=== PATIENT | male | born 1970 | race Caucasian/White ===

== ENCOUNTER 2016-09-25 18:10 | Observation (INO) | payer SELFPAY ==
[~2016-09-25] VITALS: Ht 182.9 cm; Wt 96.9 kg
[~2016-09-25 18:10] MED LIST: CYCL-36 PO; DICL50TA3 PO
[2016-09-25 18:15] VITALS: BP 133/103; PULSE 97; RESP 16; TEMP 98.3; O2SAT 97
[2016-09-25 18:20] VITALS: RESP 16; O2SAT 100
--- NOTE | 2016-09-25 18:44 | PD ---
HPI Chief Complaint: Chest Pain Time Seen by Provider: 18:29 Travel History International Travel<30 days: No Contact w/Intl Traveler<30days: No Traveled to known affect area: No History of Present Illness HPI This 46-year-old male is complaining that for the past 9 months or so he has been having episodes of chest pain. He says it feels like somebody has 2 fingers pressing on the left side of his chest. The symptoms gets blurred vision with these episodes. Cannot relate the discomfort to exertion. It usually lasts 15-20 minutes. No radiation of pain. There is no diaphoresis. He is having the pain has trouble taking a deep breath but generally he does not. He stopped smoking 2 months ago. His father at age of 56 with congestive heart failure. He has no history of hypertension and diabetes [facility] Past Medical History Medical History: Denies Significant Hx Cardiovascular Problems: Yes (HTN) Diminished Hearing: No Immunizations Current: Yes Influenza Vaccination: No Past Surgical History Genitourinary Surgery: Yes (HYDROCELE RIGHT) Tonsillectomy: Yes Social History Alcohol Use: Yes (5 X WEEK 4-5 BEERS) Tobacco Use: Yes (QUIT 07/2016) Substance Use: No Allergies-Medications (Allergen,Severity, Reaction): Coded Allergies: Penicillin (Verified Allergy, Unknown, UNKNOWN, 09/25/16) STATES WAS TOLD A CHILD ALLERGIC Reported Meds & Prescriptions Reported Meds & Active Scripts Active No Active Prescriptions or Reported Medications Review of Systems General / Constitutional: No: Fever, Chills Eyes: Positive: Blurred Vision, No: Diploplia HENT: No: Headaches, Vertigo Cardiovascular: No: Chest Pain or Discomfort, Palpitations Respiratory: No: Cough, Shortness of Breath Gastrointestinal: No: Nausea, Vomiting Genitourinary: No: Urgency, Frequency Musculoskeletal: No: Myalgias, Arthralgias Skin: No Rash, No Itching Neurologic: No: Weakness, Dizziness Endocrine: No: Heat Intolerance Hematologic/Lymphatic: No: Easy Bruising Physical Exam Narrative GENERAL: Well-developed male SKIN: Focused skin assessment warm/dry. HEAD: Atraumatic. Normocephalic. EYES: Pupils equal and round. No scleral icterus. No injection or drainage. ENT: No nasal bleeding or discharge. Mucous membranes pink and moist. NECK: Trachea midline. No JVD. CARDIOVASCULAR: Regular rate and rhythm. No murmur appreciated. There is no chest wall tenderness RESPIRATORY: No accessory muscle use. Clear to auscultation. Breath sounds equal bilaterally. GASTROINTESTINAL: Abdomen soft, non-tender, nondistended. Hepatic and splenic margins not palpable. MUSCULOSKELETAL: No obvious deformities. No clubbing. No cyanosis. No edema. NEUROLOGICAL: Awake and alert. No obvious cranial nerve deficits. Motor grossly within normal limits. Normal speech. PSYCHIATRIC: Appropriate mood and affect; insight and judgment normal. Data Data Last Documented VS Vital Signs Date Time Temp Pulse Resp B/P Pulse Ox O2 Delivery O2 Flow Rate FiO2 09/25/16 19:31 77 18 98 Room Air 09/25/16 19:29 124/81 09/25/16 18:15 98.3 Orders Electrocardiogram (09/25/16 18:41) Basic Metabolic Panel (Bmp) (09/25/16 18:41) Complete Blood Count With Diff (09/25/16 18:41) Troponin I (09/25/16 18:41) Chest, Single Ap (09/25/16 18:41) Ecg Monitoring (09/25/16 18:41) Iv Access Insert/Monitor (09/25/16 18:41) Oximetry (09/25/16 18:41) Oxygen Administration (09/25/16 18:41) Aspirin (Aspirin) (09/25/16 18:45) Sodium Chloride 0.9% Flush (Ns Flush) (09/25/16 18:45) Labs Laboratory Tests Test 09/25/16 18:30 White Blood Count 8.0 TH/MM3 Red Blood Count 4.13 MIL/MM3 Hemoglobin 13.4 GM/DL Hematocrit 39.1 % Mean Corpuscular Volume 94.7 FL Mean Corpuscular Hemoglobin 32.5 PG Mean Corpuscular Hemoglobin 34.3 % Concent Red Cell Distribution Width 12.8 % Platelet Count 328 TH/MM3 Mean Platelet Volume 7.7 FL Neutrophils (%) (Auto) 53.2 % Lymphocytes (%) (Auto) 32.7 % Monocytes (%) (Auto) 11.2 % Eosinophils (%) (Auto) 2.6 % Basophils (%) (Auto) 0.3 % Neutrophils # (Auto) 4.3 TH/MM3 Lymphocytes # (Auto) 2.6 TH/MM3 Monocytes # (Auto) 0.9 TH/MM3 Eosinophils # (Auto) 0.2 TH/MM3 Basophils # (Auto) 0.0 TH/MM3 CBC Comment DIFF FINAL Differential Comment Sodium Level 142 MEQ/L Potassium Level 3.7 MEQ/L Chloride Level 108 MEQ/L Carbon Dioxide Level 25.2 MEQ/L Anion Gap 9 MEQ/L Blood Urea Nitrogen 26 MG/DL Creatinine 2.10 MG/DL Estimat Glomerular Filtration 34 ML/MIN Rate Random Glucose 107 MG/DL Calcium Level 8.3 MG/DL Troponin I LESS THAN 0.02 NG/ML MDM Medical Decision Making Medical Screen Exam Complete: Yes Emergency Medical Condition: Yes Medical Record Reviewed: Yes Differential Diagnosis Differential includes chest wall pain, coronary syndrome, angina, Narrative Course EKG shows normal sinus rhythm. Troponin is normal. Patient has elevation of his creatinine at 2 which I believe is an incidental finding will certainly significant problem for the patient. He does need further evaluation for chest pain admitted to chest pain center Diagnosis Primary Impression: Chest pain Qualified Code: R07.9 - Chest pain, unspecified type Admitting Information Admitting Physician Requests: Observation Scripts No Active Prescriptions or Reported Meds Kingston Ball MD Sep 25, 2016 18:44
[2016-09-25] MEDS ORDERED: SODIUM CHLORIDE 0.9% FLUSH 10 ML FLUSH IVF PRN (18:45)
[2016-09-25] MEDS ORDERED: ASPIRIN 325 MG TAB PO ONE (18:45)
[2016-09-25 19:06] LABS: AUTOMATED NEUTROPHIL # 4.3 TH/MM3 (1.8-7.7); BASOPHIL % 0.3 % (0.0-2.0); EOSINOPHIL # 0.2 TH/MM3 (0-0.4); EOSINOPHIL % 2.6 % (0.0-4.0); HEMATOCRIT 39.1 % (39.0-51.0); HEMO FLAGS DIFF FINAL; LYMPH % 32.7 % (9.0-44.0); LYMPHOCYTE # 2.6 TH/MM3 (1.0-4.8); MEAN CELL VOLUME 94.7 FL (80.0-100.0); MEAN CORPUSCULAR HEMOGLOBIN 32.5 PG (27.0-34.0); MEAN CORPUSCULAR HGB CONC 34.3 % (32.0-36.0); MONO % 11.2 % (0.0-8.0); NEUT % 53.2 % (16.0-70.0); PLATELET COUNT 328 TH/MM3 (150-450); RED BLOOD COUNT 4.13 MIL/MM3 (4.50-5.90); RED CELL DISTRIBUTION WIDTH 12.8 % (11.6-17.2)
[2016-09-25 19:18] LABS: CHLORIDE 108 MEQ/L (98-107); POTASSIUM 3.7 MEQ/L (3.5-5.1); SODIUM (NA) 142 MEQ/L (136-145)
[2016-09-25 19:21] LABS: ANION GAP 9 MEQ/L (5-15); BICARBONATE 25.2 MEQ/L (21.0-32.0); BLOOD UREA NITROGEN 26 MG/DL (7-18)
[2016-09-25 19:24] LABS: GLOMERULAR FILTRATION RATE 34 ML/MIN (>89)
[2016-09-25 19:29] VITALS: BP 124/81; PULSE 77; RESP 18; O2SAT 98
[2016-09-25] MEDS ORDERED: SODIUM CHLORIDE 0.9% FLUSH 10 ML FLUSH IV FLUSH PRN (20:45)
[2016-09-25 21:17] VITALS: BP 128/80; PULSE 74; RESP 18; O2SAT 98
[2016-09-25] MEDS: SODIUM CHLORIDE 0.9% FLUSH 10 ML FLUSH IV FLUSH SCH (21:17)
[2016-09-25 22:00] VITALS: BP 185/84; PULSE 86; RESP 20; TEMP 98.7; O2SAT 95
[2016-09-25 22:05] LABS: CREATINE KINASE 516 U/L (39-308)
--- NOTE | 2016-09-25 22:10 | EKG ---
Date Performed: 09/25/2016 Time Performed: 21:37:09 PTAGE: 46 years EKG: SINUS BRADYCARDIA BORDERLINE ECG PREVIOUS TRACING : 09/25/2016 18.25 No significant change from previous tracing noted. DOCTOR: Jean-Claude Ledbetter Interpretating Date/Time 09/25/2016 22:10:10
[2016-09-25 22:15] VITALS: BP 115/77; PULSE 74; RESP 18; O2SAT 98
[2016-09-25 22:20] LABS: CKMB 3.7 NG/ML (0.5-3.6)
--- NOTE | 2016-09-25 22:27 | EKG ---
Date Performed: 09/25/2016 Time Performed: 18:25:13 PTAGE: 46 years EKG: Sinus rhythm NORMAL ECG NO PREVIOUS TRACING DOCTOR: Jean-Claude Ledbetter Interpretating Date/Time 09/25/2016 22:25:28
[2016-09-26] VITALS: BP 120/83; PULSE 72; RESP 18; TEMP 96.1; O2SAT 93
[2016-09-26 00:13] VITALS: PULSE 61
[2016-09-26 01:07] LABS: CREATINE KINASE 458 U/L (39-308)
[2016-09-26 01:20] LABS: CKMB 3.2 NG/ML (0.5-3.6)
[2016-09-26 02:16] VITALS: O2SAT 95
[2016-09-26 04:00] VITALS: BP 131/89; PULSE 78; RESP 18; TEMP 96.2; O2SAT 96
[2016-09-26] MEDS ORDERED: SODIUM CHLOR 0.9% 1000 ML INJ 1,000 ML IV SCH (07:30)
[2016-09-26 08:00] VITALS: BP 137/83; PULSE 67; RESP 15; TEMP 96.8; O2SAT 96
--- NOTE | 2016-09-26 08:33 | EKG ---
Date Performed: 09/26/2016 Time Performed: 00:34:23 PTAGE: 46 years EKG: Sinus rhythm PROLONGED QT INTERVAL ABNORMAL ECG PREVIOUS TRACING : 09/25/2016 21.37 No significant change from previous tracing noted. DOCTOR: Jean-Claude Ledbetter Interpretating Date/Time 09/26/2016 08:32:28
[2016-09-26 08:43] VITALS: O2SAT 95
[2016-09-26 09:06] LABS: POTASSIUM 3.9 MEQ/L (3.5-5.1)
[2016-09-26 09:10] LABS: BICARBONATE 24.1 MEQ/L (21.0-32.0); MAGNESIUM 2.1 MG/DL (1.5-2.5)
--- NOTE | 2016-09-26 09:41 | RADRPT ---
EXAM DATE/TIME: 09/25/2016 19:06 [facility] COMPARISON: No previous studies available for comparison. INDICATIONS : Chest pain on and off for a week. High blood pressure today. MEDICAL HISTORY : None. SURGICAL HISTORY : None. ENCOUNTER: Initial ACUITY: 1 week PAIN SCORE: 3/10 LOCATION: Bilateral chest FINDINGS: A single view of the chest demonstrates the lungs to be symmetrically aerated without evidence of mas s, infiltrate or effusion. The cardiomediastinal contours are unremarkable. Osseous structures are intact. CONCLUSION: No acute disease. Ghanshyam Flores MD FACR on September 25, 2016 at 19:15 Board Certified Radiologist. This report was verified electronically.
--- NOTE | 2016-09-26 10:19 | HHI.HP ---
HPI Service [facility] Primary Care Physician No Primary Care Physician Admission Diagnosis CHEST PAIN Diagnoses: (1) Chest pain Diagnosis: Principal (2) Dehydration Diagnosis: Principal (3) ALEISHA (acute kidney injury) Diagnosis: Principal Chief Complaint: chest pain Travel History International Travel<30 Days: No Contact w/Intl Traveler <30 Da: No Traveled to Known Affected Are: No History of Present Illness Written by Heidi Pace PA-C acting as scribe for Dr. Martinez on 09/26/16 at 1010. This note was transcribed by scribe Heidi LÓPEZ. I, Dr. Ria Martinez personally performed the history, physical exam, and medical decision making; and confirmed the accuracy of the information in the transcribed note. Authenticated by Dr. Ria Martinez on 09/26/16 at 1010. 46-year-old male diagnosed with hyperlipidemia in the past but no other significant medical problems presents with complaint of chest pain and is admitted chest pain center. Patient states the chest pain started months ago. He points with 2 fingers to just left of the sternum and states it feels like someone is pushing on him from the inside. Denies radiation of pain elsewhere. He states the pain comes and goes randomly and is not purely associated with exertion as he states he mowed a large lawn recently without any symptoms. Pain lasts a few minutes when it comes on. He states yesterday it came on and he had a chill come over him and he felt nervous and started pacing. He states it took 5 or 6 breaths in order to catch his breath, stating it may have been panic. States his blood pressure has been high recently. Denies any associated diaphoresis, nausea, vomiting. Denies fevers or chills or recent cough. Denies leg swelling. Normal BMs recently. 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 He believes his chest pain is stress related. He states he had a treadmill stress test 10 years ago which was normal. Patient states he feels great currently but is hungry. Review of Systems Except as stated in HPI: all other systems reviewed are Neg Past Family Social History Past Medical History Hyperlipidemia Past Surgical History Tonsillectomy Right hydrocele Reported Medications No Active Prescriptions or Reported Medications Allergies: Coded Allergies: Penicillin (Verified Allergy, Unknown, UNKNOWN, 09/25/16) STATES WAS TOLD A CHILD ALLERGIC Family History Father of CHF. Sister: Hyperlipidemia Brother: Healthy Social History Patient drinks 4-5 beers daily. Patient quit smoking a few months ago. He smoked cigarettes for 3-4 years, one pack per day. Patient uses marijuana every other day. Denies any other illicit drug use including cocaine or IVDA. Physical Exam Vital Signs Vital Signs Date Time Temp Pulse Resp B/P Pulse Ox O2 Delivery O2 Flow Rate FiO2 09/26/16 08:43 95 21 09/26/16 04:00 96.2 78 18 131/89 96 09/26/16 02:16 95 21 09/26/16 00:13 61 09/26/16 00:00 96.1 72 18 120/83 93 09/25/16 22:15 74 18 115/77 98 Room Air 09/25/16 22:14 74 18 98 09/25/16 21:17 74 18 128/80 98 Room Air 09/25/16 19:31 77 18 98 Room Air 09/25/16 19:29 77 18 124/81 98 Room Air 09/25/16 18:25 90 16 100 Room Air 09/25/16 18:20 100 Room Air 09/25/16 18:20 16 100 Room Air 09/25/16 18:15 98.3 97 16 133/103 97 Physical Exam GENERAL: This is a well-nourished, well-developed patient, in no apparent distress. SKIN: No rashes, ecchymoses or lesions. Warm and dry. HEAD: Atraumatic. Normocephalic. EYES: No scleral icterus. No injection or drainage. NECK: Trachea midline. CARDIOVASCULAR: Regular rate and rhythm without murmurs, gallops, or rubs. RESPIRATORY: Clear to auscultation. Breath sounds equal bilaterally. No wheezes , rales, or rhonchi. GASTROINTESTINAL: Abdomen nondistended. MUSCULOSKELETAL: No lower extremity edema bilaterally. NEUROLOGICAL: Awake and alert. Motor grossly within normal limits. Normal speech. PSYCHIATRIC: Normal mood and affect. Insight and judgement normal. Laboratory Laboratory Tests Test 09/25/16 09/25/16 09/26/16 09/26/16 18:30 21:25 00:37 08:50 White Blood Count 8.0 Red Blood Count 4.13 Hemoglobin 13.4 Hematocrit 39.1 Mean Corpuscular Volume 94.7 Mean Corpuscular Hemoglobin 32.5 Mean Corpuscular Hemoglobin 34.3 Concent Red Cell Distribution Width 12.8 Platelet Count 328 Mean Platelet Volume 7.7 Neutrophils (%) (Auto) 53.2 Lymphocytes (%) (Auto) 32.7 Monocytes (%) (Auto) 11.2 Eosinophils (%) (Auto) 2.6 Basophils (%) (Auto) 0.3 Neutrophils # (Auto) 4.3 Lymphocytes # (Auto) 2.6 Monocytes # (Auto) 0.9 Eosinophils # (Auto) 0.2 Basophils # (Auto) 0.0 CBC Comment DIFF FINAL Differential Comment Sodium Level 142 143 Potassium Level 3.7 3.9 Chloride Level 108 111 Carbon Dioxide Level 25.2 24.1 Anion Gap 9 8 Blood Urea Nitrogen 26 19 Creatinine 2.10 1.10 Estimat Glomerular Filtration 34 71 Rate Random Glucose 107 93 Calcium Level 8.3 8.4 Troponin I LESS THAN 0.02 LESS THAN 0.02 LESS THAN 0.02 Total Creatine Kinase 516 458 382 Creatine Kinase MB 3.7 3.2 Creatine Kinase MB % 0.7 0.7 Magnesium Level 2.1 Result Diagram: 09/25/16 1830 09/26/16 0850 Imaging Last Impressions Chest X-Ray 09/25/16 1841 Signed Impressions: Service Date/Time: Sunday, September 25, 2016 19:06 - CONCLUSION: No acute disease. Ghanshyam Flores MD FACR Assessment and Plan Assessment and Plan 46-year-old male with: Chest pain: He has had this for months. EKGs 3 with sinus rhythm and no evidence of ischemia. Prolonged QTc of 470 on EKG #3. Troponin 3 less than 0.02. Chest x-ray with no acute disease. Patient's chest pain is likely stress related as he has a very taxing occupation. -Patient received 325 mg aspirin at ~1900 hrs last night. -Nitroglycerin prn chest pain -Telemetry -ETT to be performed. Remain NPO. ALEISHA/dehydration: Improved. Likely attributed to working out in the heat, lack of by mouth hydration and patient also uses alcohol regularly. CK elevated at 516-->382. BUN/creatinine 26/2.10-->19/1.10. Electrolytes normal. Patient did not receive any IVF overnight. -IV NS @ 100 mL/hr started. Alcohol use: Patient drinks 4-5 beers daily. He does desire to quit. He was informed that alcohol can cause worsening dehydration. No evidence of withdrawal. DVT prophylaxis: ambulation ETT performed, reviewed by category development manager, normal. Patient's chest pain likely attributed to stress and anxiety/panic. He is advised to decrease his stress at work. He is advised of coping strategies including exercising and getting good sleep. He is advised to quit using alcohol which he understands. He is also advised to hydrate with water and avoid caffeinated beverages. Discharge disposition: Home in fair to good condition. Diet: Heart healthy. Patient advised to eat a low-salt, low-fat, low- cholesterol diet. Activity: Regular Medications: None Follow-up: Patient advised to follow-up with community clinic. information technology audit manager has provided patient assistance information. Discussed Condition With patient Problem Qualifiers (1) Chest pain: Qualified Code: R07.9 - Chest pain, unspecified type Heidi Pace Sep 26, 2016 10:19 Ria Martinez MD Sep 26, 2016 12:12
[2016-09-26 10:22] LABS: CKMB 2.8 NG/ML (0.5-3.6)
[2016-09-26] MEDS: SODIUM CHLORIDE 0.9% FLUSH 10 ML FLUSH IV FLUSH SCH (10:28)
[2016-09-26] MEDS ORDERED: ACETAMINOPHEN 500 MG CPLT PO PRN (11:00)
[2016-09-26] MEDS ORDERED: NITROGLYCERIN 0.4 MG SL 25 TABS/BTL SL PRN (11:00)
--- NOTE | 2016-09-26 14:40 | HHI.DCPOC ---
Discharge Care Plan Diagnosis: (1) Chest pain (2) Dehydration (3) ALEISHA (acute kidney injury) Your Health Problems Are: Anxiety Chest Pain Goals to Promote Your Health * To prevent worsening of your condition and complications * To maintain your health at the optimal level Directions to Meet Your Goals Take your medications as prescribed Follow your dietary instruction Follow activity as directed Keep your appointments as scheduled Take your immunizations and boosters as scheduled If your symptoms worsen call your PCP, if no PCP go to Urgent Care Center or Emergency Room Smoking is Dangerous to Your Health. Avoid second hand smoke Call the 24-hour hour crisis hotline for domestic abuse at Heidi Pace Sep 26, 2016 14:40
--- NOTE | 2016-09-27 15:41 | TR ---
Date Performed: 09/26/2016 Time Performed: 11:02:38 DOCTOR: Jhonathan Mcgee DRUG LIST: CLINICAL HISTORY: REASON FOR TEST: Chest pain REASON FOR ENDING: OBSERVATION: CONCLUSION: Patient tolerated ODIN protocol with Total Exercise Time=9:00 Maximum MT=627 % Max HR Achieved=90.0% Maximum MI=659/98. Testing stopped secondary to goal achieved. No chest pain. Occas ional PVCs present. HR and BP appropriate response to exercise and HR and BP receovered appropriately . COMMENTS: Patient exercised using the Odin protocol. No electrocardiographic changes were seen to suggest ischemia. Hemodynamic response to exercise was normal. No significant arrhythmia was prese nt.
== END 2016-09-26 16:16 | disposition home or self-care (01) ==
LOC: PHED 18:10 → PHEDA 20:39 → PH3A 22:08
PROVIDERS: ADMIT Hospitalist; ATTEND Hospitalist
DX: R07.9 Chest pain, unspecified (principal); E86.0 Dehydration; N17.9 Acute kidney failure, unspecified; I45.81 Long QT syndrome; R00.1 Bradycardia, unspecified; R94.31 Abnormal electrocardiogram [ECG] [EKG]; H53.8 Other visual disturbances; I10 Essential (primary) hypertension; E78.5 Hyperlipidemia, unspecified; F41.9 Anxiety disorder, unspecified; F12.90 Cannabis use, unspecified, uncomplicated; Z87.891 Personal history of nicotine dependence; Z82.49 Family history of ischemic heart disease and other diseases of the circulatory system
CPT/HCPCS: 71010; 80048; 82550; 82552; 83735; 84484; 85025; 93005; 93017; 99285; G0378; J7030